=== PATIENT | female | born 1930 | race Caucasian/White ===

== ENCOUNTER 2019-04-05 09:50 | Emergency (ER) | payer MEDICARE ==
[2019-04-05] MEDS ORDERED: Adacel (T-DAP) 0.5 ML SYRINGE ONE (09:58)
[2019-04-05] MEDS ORDERED: Sulfameth/Trimethoprim DS 800-160mg TAB ONE (09:58)
== END 2019-04-05 10:14 | disposition home or self-care (01) ==
LOC: BURERS 09:50
DX: L03.012 Cellulitis of left finger (principal)
CPT/HCPCS: 87070; 87205; 90471; 90715

== ENCOUNTER 2020-02-12 12:47 | Emergency (ER) | payer MEDICARE, OTHER ==
[~2020-02-12 12:47] MED LIST: Iopamidol 370 76% 100 ML VIAL ONE
[2020-02-12 13:54] LABS: #Lymphocytes 1.3 thou/uL (1.20-3.40); #Monocytes 0.6 thou/uL (0.11-0.59); #Neutrophils 7.7 thou/uL (1.40-6.50); %Basophils 0.3 % (0.0-1.0); %Eosinophils 0.2 % (0.0-10.0); %Lymphocytes 13.6 % (21.0-51.0); %Monocytes 6.1 % (0.0-10.0); %Neutrophils 79.8 % (42.0-75.0); Hemoglobin 13.8 g/dL (12.0-16.0); Mean Corpuscular HGB CONC 33.4 g/dL (32.0-36.0); Mean Corpuscular Volume 92.8 fL (78.0-98.0); Mean Platelet Volume 6.2 fL (7.4-10.4); Platelet Count 215 thou/uL (130-400); RBC Distribution Width 11.4 % (11.5-14.5); Red Blood Cell (RBC) Count 4.45 mill/uL (4.20-5.40); White Blood Cell (WBC) Count 9.7 thou/uL (4.8-10.8)
[2020-02-12] MEDS ORDERED: Morphine 4 MG/ML VIAL ONE (13:59)
[2020-02-12] MEDS ORDERED: Ondansetron PF 4 MG/2 ML Vial ONE (13:59)
[2020-02-12 14:05] LABS: ALT (SGPT) 15 U/L (8-55); AST (SGOT) 19 U/L (5-34); Albumin 4.1 g/dL (3.4-4.8); Alkaline Phosphatase 71 U/L (40-110); Anion Gap 17 mmol/L (10-20); BUN (Urea Nitrogen) 13 mg/dL (9.8-20.1); Bilirubin, Total 1.2 mg/dL (0.2-1.2); Calc. Creatinine Clearance 0 mL/min (70-130); Calcium 9.3 mg/dL (7.8-10.44); Carbon Dioxide 22 mmol/L (23-31); Chloride 101 mmol/L (98-107); Estimated GFR-MDRD Greater than 90; Globulin 3.1 g/dL (2.4-3.5); Glucose 108 mg/dL (83-110); Lipase 9 U/L (8-78); Potassium 3.5 mmol/L (3.5-5.1); Protein, Total 7.2 g/dL (6.0-8.3); Sodium 136 mmol/L (136-145)
[2020-02-12 14:39] LABS: Bilirubin Negative (Negative); Blood, Urine Moderate (Negative); Clarity Clear (Clear); Glucose, Urine (Dipstick) Negative (Negative); Ketone, Urine 40 mg/dL (Negative); Leukocyte Negative (Negative); Nitrite Negative (Negative); Protein, Urine (Dipstick) Negative (Neg-Trace); Specific Gravity, Urine 1.025 (1.005-1.030); Urobilinogen 0.2 mg/dL (Less than 2)
[2020-02-12 14:56] LABS: WBC/HPF 0-3 HPF (0-3)
[2020-02-12 14:57] LABS: Bacteria/HPF None Seen HPF (None Seen); Squamous Epithelial 0-3 HPF (0-3)
[2020-02-12] MEDS ORDERED: Ketorolac Tromethamine 30 MG/ML VIAL ONE (15:13)
--- NOTE | 2020-02-12 18:54 | CT ---
CT ABDOMEN AND PELVIS WITH CONTRAST: 02/12/[address] of the abdomen and pelvis was done using IV contrast only. There are no prior scans availab for comparison. The lung bases are clear. There are no effusions. There are multiple cystic lesions throughout the li wilber, the largest measuring about 2.5 cm in size. There is also at least one 1 cm cyst in the left kid chanel. Statistically, the hepatic findings are most likely simple cysts. Entity such as cystic metastas es seem much less likely. A small hiatal hernia is present. The spleen and pancreas were unremarkable . The gallbladder was a bit generous in size but contained no signs of stones or wall thickening. No adrenal masses were seen. The aorta showed calcification but no aneurysm. Diverticulosis is noted in the colon, but there were no findings of diverticulitis. There was no sign of renal or ureteral calculi. No free air or free fluid was seen. No inflammatory changes were seen throughout the abdomen. CT of the pelvis showed no pelvic masses, fluid collections, or inflammatory changes. Advanced degene rative changes are present in the lumbar spine with spinal stenosis particularly severe at L4-L5 and foraminal stenosis at L5-S1. IMPRESSION: 1. Diverticulosis without findings of diverticulitis. 2. Cystic lesions of the liver and left kidney, most likely simple cysts. No sign of renal obstr uction. 3. Small hiatal hernia. 4. Degenerative changes of the lumbar spine with spinal stenosis particularly at L4-L5. Findings discussed with Dr. Kc at 1443 on 02/12/20. POS: HOME
== END 2020-02-12 15:20 | disposition home or self-care (01) ==
LOC: BURERS 12:47
DX: R10.32 Left lower quadrant pain (principal)
CPT/HCPCS: 74177; 80053; 81003; 81015; 83605; 83690; 85025; 96374; 96375; J1885; J2270; J2405; Q9967